=== PATIENT | female | born 2000 | race Caucasian/White ===

== ENCOUNTER 2021-02-24 21:27 | Emergency (ER) | payer MEDICAID ==
[~2021-02-24] VITALS: Ht 165.1 cm; Wt 60.0 kg
[2021-02-24 21:38] VITALS: BP 114/70
--- NOTE | 2021-02-24 21:45 | NUR ---
[facility] AT BEDSIDE WITH PT.
[2021-02-24] MEDS ORDERED: LIDOCAINE-MPF 1%, 5ML ONE ×2 (21:56→22:40)
[2021-02-24] MEDS ORDERED: LIDOCAINE-MPF 1%, 5ML INFIL ONE (22:00)
[2021-02-25] MEDS ORDERED: BUPIVACAINE 0.25% ONE (00:17)
[2021-02-25] MEDS ORDERED: BUPIVACAINE 0.25% INFIL ONE (00:30)
[2021-02-25] MEDS ORDERED: NEOSPORIN OINT. PKT 1 PACKET ONE (00:48)
== END 2021-02-25 01:25 | disposition home or self-care (01) ==
LOC: ED 23:55
DX: S61.310A Laceration without foreign body of right index finger with damage to nail, initial encounter (principal); S61.101A Unspecified open wound of right thumb with damage to nail, initial encounter; F10.120 Alcohol abuse with intoxication, uncomplicated; F17.210 Nicotine dependence, cigarettes, uncomplicated; X58.XXXA Exposure to other specified factors, initial encounter; Y93.89 Activity, other specified; Y92.009 Unspecified place in unspecified non-institutional (private) residence as the place of occurrence of the external cause; Y99.8 Other external cause status
CPT/HCPCS: 11730; 11760; 99406